=== PATIENT | female | born 1985 | race Caucasian/White ===

== ENCOUNTER 2016-11-15 20:08 | Emergency (ER) | payer OTHER ==
[~2016-11-15 20:08] MED LIST: DICLOFENAC PO; FLEXERIL10 M1 PO; FLEXERIL10 MG PO; MOBIC PO; MOTRIN20 MG/ML PO; MUCINEX DM1 TAB.SR . PO; NAPROSYN500 MG PO; NO MEDICATIONS; PERCOCET 5-3251 TAB PO; PHENERGAN25 MG PO; PRENATAL1 TA1 PO; SEPTRA DS PO; TYLENOL325 M1 PO; VICODIN 5/500 T1 TAB PO; ZITHROMAX PO
== END 2016-11-15 20:15 | disposition home or self-care (01) ==
LOC: CED 20:08
DX: T40.1X1A Poisoning by heroin, accidental (unintentional), initial encounter (principal); F17.210 Nicotine dependence, cigarettes, uncomplicated
CPT/HCPCS: 99282